=== PATIENT | female | born 1950 | race Two or more races ===

== ENCOUNTER 2018-08-06 13:02 | Outpatient (CLI) | payer OTHER ==
[~2018-08-06 13:02] MED LIST: CIPRODEX OTIC7.5 ML OT; DOLOGESIC CAPSU1 CAP PO; LOSARTAN POTASS50 MG; PNEU16DI2; PRILOSEC OTC20 MG; SYNTHROID50 MCG; TOPROL XL25 M1; TUSICOF LIQUID120 ML PO; TUSSI-PRES LIQ120 ML PO; ZITHROMAX500 MG PO
== END 2018-08-06 13:10 | disposition home or self-care (01) ==
LOC: SONOGRAMA 13:02 → MAMO-SONO 13:45
DX: M12.512 Traumatic arthropathy, left shoulder (principal)

== ENCOUNTER 2020-05-25 12:49 | Outpatient (CLI) | payer OTHER | END 2020-05-25 12:58 | disposition home or self-care (01) | LOC: MAMO-SONO 12:49 | PROVIDERS: ATTEND Family Medicine Adult Medicine | DX: Z12.31 Encounter for screening mammogram for malignant neoplasm of breast (principal); Z87.898 Personal history of other specified conditions; N64.59 Other signs and symptoms in breast ==

== ENCOUNTER 2020-07-05 15:04 | Emergency (ER) | payer OTHER ==
[~2020-07-05] VITALS: Ht 144.8 cm; Wt 72.6 kg
== END 2020-07-05 19:30 | disposition home or self-care (01) ==
LOC: ER 15:04
DX: R42 Dizziness and giddiness (principal)

== ENCOUNTER 2021-01-31 10:55 | Outpatient (CLI) | payer OTHER | END 2021-01-31 11:04 | disposition home or self-care (01) | LOC: SONOGRAMA 10:55 | PROVIDERS: ATTEND Family Medicine Adult Medicine | DX: R10.84 Generalized abdominal pain (principal) ==

== ENCOUNTER 2021-06-06 09:54 | Outpatient (CLI) | payer OTHER | END 2021-06-06 10:05 | disposition home or self-care (01) | LOC: MAMO-SONO 09:54 | PROVIDERS: ATTEND Family Medicine Adult Medicine | DX: Z12.31 Encounter for screening mammogram for malignant neoplasm of breast (principal) ==

== ENCOUNTER 2021-06-16 09:01 | Outpatient (CLI) | payer OTHER | END 2021-06-16 11:39 | disposition home or self-care (01) | LOC: SONOGRAMA 09:01 | PROVIDERS: ATTEND Internal Medicine Gastroenterology | DX: R10.84 Generalized abdominal pain (principal) ==

== ENCOUNTER 2021-06-22 12:00 | Outpatient (CLI) | payer OTHER | END 2021-06-22 12:01 | disposition home or self-care (01) | LOC: NUCLEAR 12:00 | PROVIDERS: ATTEND Family Medicine Adult Medicine | DX: M81.0 Age-related osteoporosis without current pathological fracture (principal) ==

== ENCOUNTER 2022-06-11 12:03 | Outpatient (CLI) | payer OTHER | END 2022-06-11 12:12 | disposition home or self-care (01) | LOC: RAD 12:03 | PROVIDERS: ATTEND Family Medicine Adult Medicine | DX: Z12.31 Encounter for screening mammogram for malignant neoplasm of breast (principal); K21.9 Gastro-esophageal reflux disease without esophagitis; I11.9 Hypertensive heart disease without heart failure ==

== ENCOUNTER 2022-07-22 21:36 | Emergency (ER) | payer OTHER ==
[~2022-07-22] VITALS: Ht 144.8 cm; Wt 72.6 kg
[2022-07-22] MEDS ORDERED: ATORVASTATIN CA40 MG PO (22:44)
[2022-07-22] MEDS ORDERED: GABAPENTIN600 MG PO (22:44)
== END 2022-07-22 23:43 | disposition home or self-care (01) ==
LOC: ER 21:36 → EMR PED 21:37 → ER 21:37
DX: R51.9 Headache, unspecified (principal); I10 Essential (primary) hypertension

== ENCOUNTER 2023-06-13 10:28 | Outpatient (CLI) | payer OTHER ==
[~2023-06-13 10:28] MED LIST changes: +ATORVASTATIN CA40 MG PO; +GABAPENTIN600 MG PO
== END 2023-06-13 10:33 | disposition home or self-care (01) ==
LOC: MAMO-SONO 10:28
DX: Z12.31 Encounter for screening mammogram for malignant neoplasm of breast (principal); M25.551 Pain in right hip; M81.0 Age-related osteoporosis without current pathological fracture

== ENCOUNTER 2023-07-19 12:32 | Outpatient (CLI) | payer OTHER | END 2023-07-19 12:34 | disposition home or self-care (01) | LOC: NUCLEAR 12:32 | PROVIDERS: ATTEND Family Medicine Adult Medicine | DX: M81.0 Age-related osteoporosis without current pathological fracture (principal) ==

== ENCOUNTER 2024-07-03 12:04 | Outpatient (CLI) | payer OTHER | END 2024-07-03 12:10 | disposition home or self-care (01) | LOC: MAMO-SONO 12:04 | PROVIDERS: ATTEND Family Medicine Adult Medicine | DX: Z12.31 Encounter for screening mammogram for malignant neoplasm of breast (principal) ==